=== PATIENT | male | born 1930 | race Caucasian/White ===

== ENCOUNTER 2016-12-09 02:17 | Emergency (ER) | payer OTHER, MEDICARE ==
[2016-12-09] MEDS ORDERED: OXYCODONE/APAP 5/325MG PREPACK#4 BTL TAKEHOME ONE (02:19)
[2016-12-09] MEDS ORDERED: OXYCODONE/APAP 5/325 TAB PO ONE (02:19)
--- NOTE | 2016-12-09 02:23 | EDPHY ---
H & P HPI/ROS: HPI CHIEF COMPLAINT: Chronic left leg pain. HISTORY OF PRESENT ILLNESS: Patient very pleasant 86-year-old male who presents emergency room by ambulance for chronic leg pain. Patient was recently moved [facility] today however they did not have a all his medications ready for him. His last dose of Percocet was 12 hours ago. He states he takes Percocet every 4 hours for chronic left leg pain. States he has chronic left leg pain this chronically achy for him ever since he has had brain surgery. States he is dependent on Percocet and has not had a for 12 hours he came to the emergency room as he was unable to tolerate the left leg pain he tells me the pain is not new. It is chronic. Always present. But controlled with Percocet he has not had any today. EMS in route brought him 5 mg IM morphine which improved his pain 10/10 to 5/10. He is requesting p.o. Percocet here. Denies any trauma. Past Medical History: CVA, chronic kidney disease, gait instability, fall risk , depression, dementia, squamous cell carcinoma of the skull Past Surgical History: Brain surgery Social History: Lives at [facility] denies daily use of drugs alcohol tobacco products Family History: Noncontributory ROS REVIEW OF SYSTEMS: A comprehensive 10 point review of systems is otherwise negative aside from elements mentioned in the history of present illness. Exam Constitutional triage nursing summary reviewed, vital signs reviewed, awake/ alert. Eyes normal conjunctivae and sclera, EOMI, PERRLA. HENT head exam left side, no skull present, soft tissue flap, normal inspection , atraumatic, moist mucus membranes, no epistaxis, neck supple/ no meningismus, no raccoon eyes. Respiratory clear to auscultation bilaterally, normal breath sounds, no respiratory distress, no wheezing. Cardiovascular rate normal, regular rhythm, no murmur, no edema, distal pulses normal. Gastrointestinal soft, non-tender, no rebound, no guarding, normal bowel sounds, no distension, no pulsatile mass. Genitourinary no CVA tenderness. Musculoskeletal left lower extremity neurovascular intact good cap refill, warm extremity good pulse. Nontender palpation. no midline vertebral tenderness, full range of motion, no calf swelling, no tenderness of extremities, no meningismus, good pulses, neurovascularly intact. Skin pink, warm, & dry, no rash, skin atraumatic. Neurologic awake, alert and oriented x 3, AAOx3, moves all 4 extremities equally, motor intact, sensory intact, CN II-XII intact, normal cerebellar, normal vision, normal speech. Psychiatric normal mood/affect. Heme/Lymph/Immune no lymphadenopathy. Differential Diagnosis: Includes but is not limited to in a particular order, neuropathy, chronic leg pain, need for Percocet, opiate dependency Medical Decision Making: Plan for this patient as he has no focal medical condition or issue that needs to be acutely dressed here in emergency room except for pain control that he has chronic left leg pain. Has been out of his pain medicine today unable to get it. He did receive 5 mg IM morphine by EMS. I have ordered him 5 mg Percocet here. Hopefully this will improve his pain we can discharge him back to [facility]. Re-evaluation: Source: Patient, EMS Departure - Departure Disposition: Home, Routine, Self-Care Clinical Impression: Chronic leg pain Qualifiers: Laterality: left Qualified Code(s): M79.605 - Pain in left leg; G89.29 - Other chronic pain Condition: Good Instructions: Leg Pain (ED) Additional Instructions: 1. Return emergency room if you have any worsening symptoms questions or concerns. Referrals: Patient,NotPresent [Primary Care Provider] - As per Instructions
[2016-12-09 02:37] VITALS: RESP 16
[2016-12-09 03:40] VITALS: BP 133/70; PULSE 70; TEMP 98.6; O2SAT 92
== END 2016-12-09 04:18 | disposition home or self-care (01) ==
LOC: EDUNIT#
DX: M79.605 Pain in left leg (principal); G89.29 Other chronic pain; Z86.73 Personal history of transient ischemic attack (TIA), and cerebral infarction without residual deficits

== ENCOUNTER 2016-12-18 18:53 | Emergency (ER) | payer OTHER, MEDICARE ==
[2016-12-18 19:05] VITALS: RESP 18; TEMP 98.6; O2SAT 98
--- NOTE | 2016-12-18 19:13 | EDPHY ---
H & P Stated Complaint: ATRAUMATIC LEFT LEG PAIN, NOW GONE - Personal History Current Tetanus Diphtheria and Acellular Pertussis (TDAP): Yes - Medical/Surgical History Hx Asthma: No Hx Chronic Respiratory Disease: No Hx Diabetes: No Hx Cardiac Disease: No Hx Renal Disease: No Hx Cirrhosis: No Hx Alcoholism: No Hx HIV/AIDS: No Hx Splenectomy or Spleen Trauma: No Other PMH: brain CA, CKD, CVA - Social History Smoking Status: Never smoked Constitutional: Initial Vital Signs Temperature (C) 37.0 C 12/18/16 19:01 Heart Rate 66 12/18/16 19:01 Respiratory Rate 18 12/18/16 19:01 Blood Pressure 161/82 H 12/18/16 19:01 O2 Sat (%) 98 12/18/16 19:01 O2 Delivery Mode Room Air Allergies/Adverse Reactions: Sulfa (Sulfonamide Antibiotics) Allergy (Verified 12/09/16 02:29) Home Medications: Medication Instructions Recorded Atorvastatin Calcium 12/09/16 Calcitriol 12/09/16 Gabapentin 12/09/16 Iron 12/09/16 Lexapro 12/09/16 Percocet 7.5-325 mg Tablet 12/09/16 Trazodone HCl 12/09/16 oxyCODONE HCL/ACETAMINOPHEN 1 each PO Q4H #20 tablet 12/18/16 [Percocet 10-325 mg Tablet] Medical Decision Making ED Course/Re-evaluation: CHIEF COMPLAINT: chronic left leg pain HISTORY OF PRESENT ILLNESS: The patient is an 86 y/o male with history of brain surgery and subsequent chronic left leg pain presenting in the emergency department with sedentary chronic leg pain that has become uncontrollable with Percocet 7.5-325. He was seen 9 days ago for the same complaint and was given additional pain medication that effectively controlled his pain at that time. Currently, his left leg pain has become too painful, and uncontrolled using Percocet 7.5-325. He has no additional complaints and has trouble remembering why he is here. The patient is a poor historian secondary to prior brain surgery. He reports no traumatic falls. REVIEW OF SYSTEMS: A 10 point review of systems was performed and is negative with the exception of the elements mentioned in the history of present illness. PHYSICAL EXAM: General Appearance: Well hydrated, appropriate, and non-toxic appearing. Head: Atraumatic without scalp tenderness or obvious injury Eyes: Pupils equal, round, reactive to light and accommodation, EOMI, no trauma , no injection. Ears: Clear bilaterally, no perforation, normal landmarks Nose: Atraumatic, no rhinorrhea, clear. Throat: There is no erythema or exudates, no lesions, normal tonsils, mucus membranes moist. Neck: Supple, 2+ carotid upstroke, non-tender, no lymphadenopathy. Respiratory: No retractions, no distress, no wheezes, and no accessory muscle use. Lungs are clear to auscultation bilaterally. Cardiovascular: Regular rate and rhythm, no murmurs, rubs, or gallops. Bilateral carotid, radial, dorsalis pedis, and posterior tibial pulses intact. Good capillary refill all extremities. Gastrointestinal: Abdomen is soft, non-tender, non-distended, no masses, no rebound, no guarding, no peritoneal signs. Musculoskeletal: Unable to lift left leg. No pain from movement of leg. Normal active ROM of all other extremities, atraumatic. Neurological: Alert and oriented at baseline, appropriate, and interactive. Limited motor strength to left lower extremity, secondary to neurosurgical procedure and appears at baseline. Other than this, he has normal DTRs and non- focal cranial nerves, motor, sensory, and cerebellar exam. Skin: No rashes, good turgor, no nodules on palpation. PAST MEDICAL HISTORY: CVA, chronic kidney disease, gait instability, fall risk, depression, dementia, squamous cell carcinoma of skull. PAST SURGICAL HISTORY: Brain surgery FAMILY HISTORY: Non-contributory SOCIAL HISTORY: Lives at [facility] DIFFERENTIAL DIAGNOSIS: The differential diagnosis for the patient's leg pain includes but is not limited to chronic left leg pain, trauma, contusion. MEDICAL DECISION MAKING: This is an 86 y/o male living at [facility] whose chronic leg pain is no longer controlled by his Percocet 7.5-325. He is a poor historian and has dementia. Leg pain is chronic, sedentary, and atraumatic. Movement of his leg does not cause pain. He has limited motor strength to his left leg secondary to his prior neurosurgical procedure; this appears to be at baseline. There is no evidence of trauma or acute condition. I wrote him a script for Percocet 10-325 and explained return precautions with him as well as follow-up with his doctor. Departure - Departure Disposition: Home, Routine, Self-Care Clinical Impression: Chronic pain of left lower extremity Condition: Good Instructions: Leg Pain (ED) Additional Instructions: 1. Take Percocet as prescribed for pain management as needed. 2. See your doctor if you continue to have pain that is uncontrolled with Percocet. 3. Return to emergency room for weakness, uncontrollable pain, worsening of symptoms. Referrals: Patient,NotPresent [Primary Care Provider] - As per Instructions Prescriptions: oxyCODONE HCL/ACETAMINOPHEN [Percocet 10-325 mg Tablet] 1 each PO Q4H #20 tablet Report Scribed for: Eulalio Cohen Report Scribed by: Benjamin Jang Date of Report: 12/18/16 Time of Report: 19:18
[2016-12-18 19:32] VITALS: BP 160/81; PULSE 68
== END 2016-12-18 19:49 | disposition home or self-care (01) ==
LOC: EDUNIT#
DX: M79.662 Pain in left lower leg (principal); G89.29 Other chronic pain; Z85.841 Personal history of malignant neoplasm of brain; Z86.73 Personal history of transient ischemic attack (TIA), and cerebral infarction without residual deficits

== ENCOUNTER 2016-12-26 18:33 | Emergency (ER) | payer OTHER, MEDICARE ==
[2016-12-26 18:47] VITALS: TEMP 97.7; O2SAT 97
--- NOTE | 2016-12-26 18:58 | EDPHY ---
H & P Stated Complaint: lost balance fell hit R side of head on toilet paper roll no loc Time Seen by Provider: 12/26/16 18:51 HPI/ROS: Chief Complaint: Head injury, fall HPI: 86-year-old male had a mechanical fall after he lost his balance and struck the right side of his head on a toilet paper cisneros in the bathroom. He reports no loss of consciousness but he is some poor recollection of events. Complaining of pain in the right side of his head. He has a history of a prior left craniotomy secondary to a bony mass. Has a mild headache right now. No nausea or vomiting. No vision or hearing changes. ROS: 10 point Review of Systems is negative except as noted in the HPI. PMH: Left craniotomy Social History: No smoking, no alcohol, no recreational drug use, lives in a residential facility Family History: non-contributory Physical Exam: Gen: Awake, Alert, No Distress HEENT: Old left bony template missing secondary to craniotomy, right parietal tender with numbness with small hematoma Nose: no rhinorrhea Eyes: PERRLA, EOMI Mouth: Moist mucosa Neck: Supple, no JVD, full range of motion without pain Chest: nontender, lungs clear to auscultation Heart: S1, S2 normal, no murmur Abd: Soft, non-tender, no guarding Back: no CVA tenderness, no midline tenderness Ext: no edema, non-tender Skin: no rash Neuro: CN II-XII intact, Sensation grossly intact, Strength 5/5 in bilateral upper and lower extremities - Personal History Current Tetanus/Diphtheria Vaccine: Unsure Current Tetanus Diphtheria and Acellular Pertussis (TDAP): Unsure - Medical/Surgical History Hx Asthma: No Hx Chronic Respiratory Disease: No Hx Diabetes: No Hx Cardiac Disease: No Hx Renal Disease: No Hx Cirrhosis: No Hx Alcoholism: No Hx HIV/AIDS: No Hx Splenectomy or Spleen Trauma: No Other PMH: brain CA, CKD, CVA - Social History Smoking Status: Never smoked Constitutional: Initial Vital Signs Temperature (C) 36.5 C 12/26/16 18:45 Heart Rate 68 12/26/16 18:45 Respiratory Rate 16 12/26/16 18:45 Blood Pressure 163/77 H 12/26/16 18:45 O2 Sat (%) 97 12/26/16 18:45 O2 Delivery Mode Room Air Allergies/Adverse Reactions: Sulfa (Sulfonamide Antibiotics) Allergy (Verified 12/09/16 02:29) Home Medications: Medication Instructions Recorded Atorvastatin Calcium 12/09/16 Calcitriol 12/09/16 Gabapentin 12/09/16 Iron 12/09/16 Lexapro 12/09/16 Percocet 7.5-325 mg Tablet 12/09/16 Trazodone HCl 12/09/16 oxyCODONE HCL/ACETAMINOPHEN 1 each PO Q4H #20 tablet 12/18/16 [Percocet 10-325 mg Tablet] Medical Decision Making - Diagnostics Imaging Results: CT scan of the brain is negative for acute fracture or bleed per Dr. Carl. Imaging: Discussed imaging studies w/ inbound call center representative Radiologist ED Course/Re-evaluation: 86-year-old male status post fall with head injury. There is no evidence of acute intracranial bleed or fracture at this time. Patient is awake alert and appropriate. Will discharge back to his residence. Departure - Departure Disposition: Home, Routine, Self-Care Clinical Impression: Head injury, Fall Condition: Good Instructions: Head Injury (ED) Additional Instructions: Follow up with primary care physician in 3-4 days for any concerns. Return emergency depart for increasing headache, nausea, vomiting, vision changes hearing changes, or any other concerns. Referrals: Patient,NotPresent [Unknown] - As per Instructions
[2016-12-26 20:58] VITALS: BP 144/76; PULSE 81; RESP 18
== END 2016-12-26 20:58 | disposition home or self-care (01) ==
LOC: EDUNIT#
DX: S09.90XA Unspecified injury of head, initial encounter (principal); Z85.841 Personal history of malignant neoplasm of brain; Z86.73 Personal history of transient ischemic attack (TIA), and cerebral infarction without residual deficits; W01.10XA Fall on same level from slipping, tripping and stumbling with subsequent striking against unspecified object, initial encounter; Y92.091 Bathroom in other non-institutional residence as the place of occurrence of the external cause; Y99.8 Other external cause status

== ENCOUNTER 2017-01-11 09:27 | Emergency (ER) | payer OTHER, MEDICARE ==
--- NOTE | 2017-01-11 09:36 | EDPHY ---
H & P Time Seen by Provider: 01/11/17 09:36 - Medical/Surgical History Hx Asthma: No Hx Chronic Respiratory Disease: No Hx Diabetes: No Hx Cardiac Disease: No Hx Renal Disease: No Hx Cirrhosis: No Hx Alcoholism: No Hx HIV/AIDS: No Hx Splenectomy or Spleen Trauma: No Other PMH: brain CA, CKD, CVA - Social History Smoking Status: Never smoked Constitutional: Initial Vital Signs Temperature (C) 36.7 C 01/11/17 09:32 Heart Rate 66 01/11/17 09:32 Respiratory Rate 16 01/11/17 09:32 Blood Pressure 159/77 H 01/11/17 09:32 O2 Sat (%) 94 01/11/17 09:32 O2 Delivery Mode Room Air Allergies/Adverse Reactions: Sulfa (Sulfonamide Antibiotics) Allergy (Verified 12/09/16 02:29) Home Medications: Medication Instructions Recorded Atorvastatin Calcium 12/09/16 Calcitriol 12/09/16 Gabapentin 12/09/16 Iron 12/09/16 Lexapro 12/09/16 Percocet 7.5-325 mg Tablet 12/09/16 Trazodone HCl 12/09/16 oxyCODONE HCL/ACETAMINOPHEN 1 each PO Q4H #20 tablet 12/18/16 [Percocet 10-325 mg Tablet] Medical Decision Making - Diagnostics Imaging Results: Imaging Impressions Cervical Spine CT 01/11/17 09:36 Impression: Nothing acute identified. 2. CT Cervical Spine Without Contrast History: Trauma. Fall out of bed. Technique: Multislice helical CT through the cervical spine without contrast from the skull base to T1. Soft tissue and bone evaluation is performed. Sagittal and coronal reconstructions are obtained and reviewed. Dose reduction techniques were utilized. Findings: Cervical alignment is anatomic. No fracture or dislocation is identified. The relationship between skull base and C1 is normal. The C1-C2 articulation is normally aligned, but severely arthritic. There is a degenerative ossicle caudal to the anterior sclerotic ring of C1. The odontoid process is intact. There is degenerative disk disease between C3 and C7. Facet joints are normally aligned. There is degenerative facet disease on the left between C3 and C6. There are nuchal ligament ossifications posteriorly between C3 and C7. The cervical thoracic junction is normally aligned. Soft tissue window evaluation does not show evidence of epidural or prevertebral hematoma. Incidentally noted is bilateral carotid bifurcation vascular calcification. Impression: No acute posttraumatic abnormality identified. Results called and discussed with Eulalio Cohen MD, at 01/11/2017 10:23 Final results are concordant with the initial interpretation. General information for patients regarding this examination can be found at [email or web address]. If you have questions or comments about this report, please contact me at (hospital) or [phone] (cell). Head CT 01/11/17 09:36 Impression: Nothing acute identified. 2. CT Cervical Spine Without Contrast History: Trauma. Fall out of bed. Technique: Multislice helical CT through the cervical spine without contrast from the skull base to T1. Soft tissue and bone evaluation is performed. Sagittal and coronal reconstructions are obtained and reviewed. Dose reduction techniques were utilized. Findings: Cervical alignment is anatomic. No fracture or dislocation is identified. The relationship between skull base and C1 is normal. The C1-C2 articulation is normally aligned, but severely arthritic. There is a degenerative ossicle caudal to the anterior sclerotic ring of C1. The odontoid process is intact. There is degenerative disk disease between C3 and C7. Facet joints are normally aligned. There is degenerative facet disease on the left between C3 and C6. There are nuchal ligament ossifications posteriorly between C3 and C7. The cervical thoracic junction is normally aligned. Soft tissue window evaluation does not show evidence of epidural or prevertebral hematoma. Incidentally noted is bilateral carotid bifurcation vascular calcification. Impression: No acute posttraumatic abnormality identified. Results called and discussed with Eulalio Cohen MD, at 01/11/2017 10:23 Final results are concordant with the initial interpretation. General information for patients regarding this examination can be found at [email or web address]. If you have questions or comments about this report, please contact me at [phone] (hospital) or [phone] (cell). ED Course/Re-evaluation: CHIEF COMPLAINT: Fall hit head HISTORY OF PRESENT ILLNESS: 87-year-old gentleman who was reaching out of bed to his nightstand when he reached too far and rolled. He hit his right forehead on the ground. He was fine ambulating fine but then became dizzy so the staff at the nursing facility called for ambulance transport. Patient has slight neck pain on the right he states and slight pain on the forehead. Most importantly this patient has had brain surgery and had a metal plate put in but unfortunately that got infected metal plate was taken out so he does not have skull covering part of his right head. He denies neurologic problems REVIEW OF SYSTEMS: A 10 point review of systems was performed and is negative with the exception of the elements mentioned in the history of present illness. PHYSICAL EXAM: HR, BP, O2 Sat, RR. Temp noted General Appearance: Alert, well hydrated, appropriate, and non-toxic appearing. Head: Atraumatic without scalp tenderness or obvious injury Eyes: Pupils equal, round, reactive to light and accommodation, EOMI, no trauma , no injection. Ears: Clear bilaterally, no perforation, normal landmarks Nose: Atraumatic, no rhinorrhea, clear. Throat: There is no erythema or exudates, no lesions, normal tonsils, mucus membranes moist. Neck: Supple, 2+ carotid upstroke, nontender, no lymphadenopathy. Respiratory: No retractions, no distress, no wheezes, and no accessory muscle use. Lungs are clear to auscultation bilaterally. Cardiovascular: Regular rate and rhythm, no murmurs, rubs, or gallops. Bilateral carotid, radial, dorsalis pedis, and posterior tibial pulses intact. Good capillary refill all extremities. Gastrointestinal: Abdomen is soft, nontender, non-distended, no masses, no rebound, no guarding, no peritoneal signs. Musculoskeletal: Normal active ROM of all extremities, atraumatic. Neurological: Alert, appropriate, and interactive. The patient has normal DTRs and non-focal cranial nerves, motor, sensory, and cerebellar exam. Skin: Small hematoma right forehead, No rashes, good turgor, no nodules on palpation. Past medical history: Brain tumors with surgery Past surgical history: Brain surgery Family history: Noncontributory Social history: Lives at a nursing facility does not abuse tobacco drugs or alcohol retired DIAGNOSTICS/PROCEDURES/CRITICAL CARE TIME: Study: CT of the head and cervical spine without contrast Indication: trauma Results: CT scan of the head and cervical spine was obtained. The results of the study are normal. The study was read by the radiologist, Dr. Elizabeth . I viewed the images myself on the PACS system. DIFFERENTIAL DIAGNOSIS: The differential diagnosis for the patient's trauma included but was not limited to intracranial injury, long bone and pelvic bone fractures, spinal injury, intra-abdominal injury, and intra-thoracic injury. MEDICAL DECISION MAKING: This patient has no current neurologic problems. He did have some dizziness after the fall but he denies loss of consciousness. Due to his age group and the fact that he does not have skull covering a large portion of his head I have opted to CT him. He also has some right-sided neck pain. CTs are pending. Patient is comfortable. Patient has no acute findings. We will discharge him back to the nursing facility. Departure - Departure Disposition: Home, Routine, Self-Care Clinical Impression: Fall Qualifiers: Encounter type: initial encounter Qualified Code(s): W19.XXXA - Unspecified fall, initial encounter Contusion Qualifiers: Encounter type: initial encounter Contusion area: head Contusion of head detail : scalp Qualified Code(s): S00.03XA - Contusion of scalp, initial encounter Condition: Good Instructions: Fall Prevention for Older Adults (ED), Contusion in Adults (ED) Referrals: Patient,NotPresent [Primary Care Provider] - As per Instructions
[2017-01-11 10:56] VITALS: BP 152/80; RESP 14; O2SAT 97
[2017-01-11 10:57] VITALS: PULSE 63; TEMP 98.2
== END 2017-01-11 11:40 | disposition home or self-care (01) ==
LOC: EDUNIT#
DX: S00.03XA Contusion of scalp, initial encounter (principal); N18.9 Chronic kidney disease, unspecified; Z85.841 Personal history of malignant neoplasm of brain; Z86.73 Personal history of transient ischemic attack (TIA), and cerebral infarction without residual deficits; W06.XXXA Fall from bed, initial encounter

== ENCOUNTER → 2017-09-19 | Outpatient (CLI) | payer OTHER, MEDICARE | LOC: FIMAGING 16:02 | PROVIDERS: ATTEND Internal Medicine | DX: N50.819 Testicular pain, unspecified (principal); N18.4 Chronic kidney disease, stage 4 (severe) ==

== ENCOUNTER 2017-12-20 14:26 | Emergency (ER) | payer OTHER, MEDICARE ==
--- NOTE | 2017-12-20 14:29 | EDPHY ---
H & P Time Seen by Provider: 12/20/17 14:28 HPI/ROS: HPI: This is an 87-year-old male who presents with Chief Complaint: Blood in his urine Location: Quality: Blood Duration: 3 hours Signs and Symptoms: no fever, no nausea, no vomiting, no hematemesis, no blood in stool, no abdominal bloating, no diarrhea, no back pain, + urinary hesitancy , + urinary frequency, no testicular/groin pain, no indigestion, no chest pain, no shortness of breath Timing:acute Severity: Moderate to severe Context: Patient presents via EMS from [facility] with complaints of blood in his urine and bladder spasms. Patient is status post Uro lift transprosthetic implant procedure yesterday by Maikel Mcnamara of the [facility]. Patient reports that he was peeing okay until this morning. He reports that he is only able to urinate a small amount at a time and has noted blood in his urine. He mostly complains of spasms in his rectal and bladder area since this afternoon. He does not take any blood thinners. Denies any fever, nausea, vomiting, testicular/groin pain. Modifying Factors: None Comment: ROS: see HPI Constitutional: No fever, no chills, no weight loss Eyes: No blurred vision Respiratory: No shortness of breath, no cough Cardiovascular: No chest pain, no palpitations Gastrointestinal: No nausea, no vomiting, no diarrhea, no hematemesis, no blood in stool Genitourinary: No dysuria, + blood in urine Extremities: No myalgias, no edema Neurologic: No weakness, no numbness Skin: No rashes, no petechiae Hematologic: No bruising, no bleeding MEDICAL/SURGICAL/SOCIAL HISTORY: Medical history: brain CA, CKD, CVA Surgical history: Denies Social history: Family history noncontributory. CONSTITUTIONAL: Pleasant with mild distress elderly white male, awake and alert HEENT: Atraumatic and normocephalic, PERRL, EOMI. Nares patent; no rhinorrhea; no nasal mucosal edema. Tympanic membranes clear. Oropharynx clear, no exudate and moist pink mucosa. Airway patent. No lymphadenopathy. No meningismus. Cardiovascular: Normal S1/S2, regular rate, regular rhythm, without murmur rub or gallop. PULMONARY/CHEST: Symmetrical and nontender. Clear to auscultation bilaterally. Good air movement. No accessory muscle usage. ABDOMEN: Soft, nondistended, moderate suprapubic tenderness, no rebound, no guarding, no peritoneal signs, no masses or organomegaly. No CVAT. Male : circumcised penis, bilateral descended testes, no testicular swelling, no testicular masses, no penile discharge, no lesions, negative Prehn's sign. EXTREMITIES: 2/2 pulses, strength 5/5, no deformities, no clubbing, no cyanosis or edema. NEUROLOGICAL: no focal neuro deficits. GCS 15. SKIN: Warm and dry, no erythema. no rash. Good capillary refill. Source: Patient, EMS, Old records Exam Limitations: No limitations - Medical/Surgical History Hx Asthma: No Hx Chronic Respiratory Disease: No Hx Diabetes: No Hx Cardiac Disease: No Hx Renal Disease: No Hx Cirrhosis: No Hx Alcoholism: No Hx HIV/AIDS: No Hx Splenectomy or Spleen Trauma: No Other PMH: brain CA, CKD, CVA - Social History Smoking Status: Never smoked Constitutional: Initial Vital Signs Temperature (C) 36.8 C 12/20/17 14:35 Heart Rate 75 12/20/17 14:35 Respiratory Rate 18 12/20/17 14:35 Blood Pressure 165/125 H 12/20/17 14:35 O2 Sat (%) 95 12/20/17 14:35 O2 Delivery Mode Room Air Allergies/Adverse Reactions: Sulfa (Sulfonamide Antibiotics) Allergy (Verified 12/20/17 14:35) Home Medications: Medication Instructions Recorded Atorvastatin Calcium 12/09/16 Calcitriol 12/09/16 Gabapentin 12/09/16 Iron 12/09/16 Lexapro 12/09/16 Percocet 7.5-325 mg Tablet 12/09/16 Trazodone HCl 12/09/16 oxyCODONE HCL/ACETAMINOPHEN 1 each PO Q4H #20 tablet 12/18/16 [Percocet 10-325 mg Tablet] Cephalexin [Keflex (*)] 500 mg PO TID #21 cap 12/20/17 Opium/Belladonna Alkaloids 1 each RC Q4 PRN #12 supp.rect 12/20/17 [Belladonna-Opium 16.2-30 Supp] Medical Decision Making ED Course/Re-evaluation: Bladder scan at bedside shows greater than 350 mL 1430: ED decision to consult [facility]. B and O suppository ordered 1440: Spoke with Dr. Vega, who is deep well contractor for Dr. Mcnamara. She reports to place an 18 Russian coude and leave in place until follow-up appointment early next week. She agrees with discharging him on B and O suppository and recommends Keflex 3 times a day x 7 days. 18 Russian coude catheter inserted by nurse on 1st attempt with 400 mL of bluish colored urine. Leg bag provided. Patient will be started on antibiotics per Dr. Michel's recommendation Patient will be discharged back to the [facility] with appointment with Urology Friday or Friday. This patient was seen under the supervision of my secondary supervising physician. I evaluated care for this patient independently. Discussed this patient with Dr. Leong who did not see the patient. Differential Diagnosis: Differential diagnosis includes but is not limited to BPH, urinary tract infection, urinary retention, bladder spasms. - Data Points Medications Given: Discontinued Medications Belladonna Alkaloids/Opium (B & O) 1 each MO EDNOW ONE Stop: 12/20/17 14:40 Last Admin: 12/20/17 14:57 Dose: 1 each Departure - Departure Disposition: Home, Routine, Self-Care Clinical Impression: Urinary retention with incomplete bladder emptying, History of prostate surgery Condition: Good Instructions: Urinary Retention in Men (ED), Whitehead Catheter Placement and Care (ED) Additional Instructions: Please call Dr. Mcnamara's office on Friday for follow up appointment early next week. You will be started on Keflex 3 times a day for the next 7 days for antibiotic prophylaxis. Take B and O suppositories every 4 hr as needed for bladder spasms. Follow-Up: Please follow-up as noted above. Follow-up sooner if your condition worsens or if you develop any new problems. Call as soon as possible for an appointment. Be clear when you call for an appointment that this is an Emergency Department follow-up. Contact the Emergency Department if you have trouble arranging follow-up care. Our referrals are not based on your insurance network. When time allows, contact your insurance carrier to verify the referral physician is in your plan. If not, get a referral for an in-network liaison. Referrals: Maikel Mcnamara MD [Medical Doctor] - As per Instructions Prescriptions: Cephalexin [Keflex (*)] 500 mg PO TID #21 cap Opium/Belladonna Alkaloids [Belladonna-Opium 16.2-30 Supp] 1 each RC Q4 PRN #12 supp.rect PRN Reason: Spasms
[2017-12-20] MEDS ORDERED: OPIUM/BELLADONNA ALKALO SUPP PR ONE (14:39)
[2017-12-20] MEDS ORDERED: CEPHALEXIN 500 MG CAP PO ONE (15:27)
[2017-12-20 15:58] VITALS: BP 131/77
--- NOTE | 2017-12-20 18:39 | ASDISCHSUM ---
Discharge Information Plan Status:Assisted Living Medically Cleared to Leave: Discharge Date:12/20/2017 04:38 PM CM D/C Disposition:Assisted Living ADT D/C Disposition:Home, Routine, Self-Care Projected Discharge Date:12/20/2017 04:38 PM Transportation at D/C:Taxicab Discharge Delay Reason: Follow-Up Date:12/20/2017 04:38 PM Discharge Slot: Final Diagnosis: Placement Information Patient Contact Information Contact Name:CHIOMA Relationship:Daughter [address] Work Phone: City:[place] Alternate Phone: [facility]/Zip Code:[place] [address] Email: Financial Information Financial Class:Medicare Primary Plan Desc:MEDICARE OUTPATIENT Primary Plan Number:[id number] Secondary Plan Desc:AARP/MDR SUPPLEMENT Secondary Plan Number:[id number] Assessment Information [facility] CM Progress Note CM Note CM Note Notes: Pt presented to the ED from his Assisted Living apartment at [facility] ([phone]) for blood in his urine and bladder spasms. Requested to assist with getting patient back home. This CM spoke with DHIRAJ Rojo at [facility], and relayed information re:pt's ED visit and discharge instructions. [facility] does not have transportation available on the weekend. Pt states he will just take a cab home; this CM offered to call pt's daughter who appears to live in [place], but pt stated he didn't want to call her at this time and he wanted to just take a cab. Alia states she feels comfortable with this plan. Pt provided prescriptions and discharge instructions to follow up with his urologist, smith Morillo/[facility]. CM available for further assistance if needed. Date Signed: 12/20/2017 06:37 PM Electronically Signed By:Jessie Ruff RN Intervention Information Intervention Type:Post Acute Communication Date of Service:12/20/2017 06:37 PM Patient Type:Emergency Room Staff Member:DHIRAJ Ruff [place] Hours:0.25 Discipline:Cad Application Support Specialist Severity: Comment: Intervention Type:Transportation Date of Service:12/20/2017 06:37 PM Patient Type:Emergency Room Staff Member:DHIRAJ Ruff [place] Hours:0.25 Discipline:Cad Application Support Specialist Severity: Comment: Intervention Type:Medication Date of Service:12/20/2017 06:37 PM Patient Type:Emergency Room Staff Member:DHIRAJ Ruff [place] Hours:0.25 Discipline:Cad Application Support Specialist Severity: Comment:
== END 2017-12-20 16:38 | disposition home or self-care (01) ==
LOC: EDUNIT#
PROC: 0T9B70Z Drainage of Bladder with Drainage Device, Via Natural or Artificial Opening (ICD-10-PCS; principal; 2017-12-20)
DX: R33.9 Retention of urine, unspecified (principal); Z85.841 Personal history of malignant neoplasm of brain; Z86.73 Personal history of transient ischemic attack (TIA), and cerebral infarction without residual deficits; Z90.79 Acquired absence of other genital organ(s)

== ENCOUNTER 2017-12-27 21:39 | Emergency (ER) | payer OTHER, MEDICARE ==
--- NOTE | 2017-12-27 21:49 | EDPHY ---
H & P Time Seen by Provider: 12/27/17 21:49 HPI/ROS: HPI CHIEF COMPLAINT: Bladder spasms HISTORY OF PRESENT ILLNESS: Very pleasant 87-year-old male presents emergency room by EMS for bladder spasms. Patient has a history of dementia he currently has indwelling Whitehead catheter in place that we believe is been in place for week. He is currently on Keflex. He presents emergency room stating that he has the urge to urinate and feels bladder spasm/pain. Denies any back pain fever or vomiting. Decided come the emergency room for evaluation. Past Medical History: History of CVA, chronic kidney disease, squamous cell carcinoma, dementia, depression, indwelling Whitehead catheter Past Surgical History: Brain surgery Social History: Resides at [facility]. Denies drugs alcohol tobacco. Family History: Noncontributory ROS REVIEW OF SYSTEMS: A comprehensive 10 point review of systems is otherwise negative aside from elements mentioned in the history of present illness. Exam Constitutional appears well nontoxic no acute distress, elderly, triage nursing summary reviewed, vital signs reviewed, awake/alert. Eyes normal conjunctivae and sclera, EOMI, PERRLA. HENT normal inspection, atraumatic, moist mucus membranes, no epistaxis, neck supple/ no meningismus, no raccoon eyes. Respiratory clear to auscultation bilaterally, normal breath sounds, no respiratory distress, no wheezing. Cardiovascular rate normal, regular rhythm, no murmur, no edema, distal pulses normal. Gastrointestinal no significant tenderness over the suprapubic region, no rebound, no guarding, normal bowel sounds, no distension, no pulsatile mass. Genitourinary no CVA tenderness. Musculoskeletal no midline vertebral tenderness, full range of motion, no calf swelling, no tenderness of extremities, no meningismus, good pulses, neurovascularly intact. Skin pink, warm, & dry, no rash, skin atraumatic. Neurologic awake, alert and oriented x 3, AAOx3, moves all 4 extremities equally, motor intact, sensory intact, CN II-XII intact, normal cerebellar, normal vision, normal speech. Psychiatric normal mood/affect. Heme/Lymph/Immune no lymphadenopathy. Differential Diagnosis: Includes but is not limited to in a particular order UTI, cystitis, Whitehead catheter problem Medical Decision Making: Plan for this patient check basic blood work, gentle IV hydration, check UA Chely just Whitehead catheter re-evaluate. Peridium for bladder spasms. Re-evaluation: 1200AM: Patient's Whitehead catheter was adjusted and flushed. After flushing debris was removed and it drained appropriately. 400 cc of green color urine was drained. He is feeling much better. On re-examination he has no abdominal pain. His blood work has been reviewed he is dry on exam indeed receive IV fluids here 1 L normal saline. He now appears well. Vital signs are stable. Afebrile. Creatinine and BUN slightly elevated but close to baseline. This should improve after IV fluids. The urinalysis has been reviewed he is already on Keflex I encouraged him to continue this. Whitehead catheter is draining. No abdominal pain. He is not febrile he is not vomiting. He feels well. Plan will be discharging him back to his care facility. Return precautions discussed with him he understands return emergency room if develops worsening abdominal pain fever vomiting. Source: Patient, EMS - Medical/Surgical History Hx Asthma: No Hx Chronic Respiratory Disease: No Hx Diabetes: No Hx Cardiac Disease: No Hx Renal Disease: No Hx Cirrhosis: No Hx Alcoholism: No Hx HIV/AIDS: No Hx Splenectomy or Spleen Trauma: No Other PMH: brain CA, CKD, CVA - Social History Smoking Status: Never smoked Constitutional: Initial Vital Signs Temperature (C) 36.8 C 12/27/17 22:13 Heart Rate 80 12/27/17 22:13 Respiratory Rate 22 H 12/27/17 22:13 Blood Pressure 136/63 H 12/27/17 22:13 O2 Sat (%) 94 12/27/17 22:13 O2 Delivery Mode Room Air Allergies/Adverse Reactions: Sulfa (Sulfonamide Antibiotics) Allergy (Verified 12/20/17 14:35) Home Medications: Medication Instructions Recorded Atorvastatin Calcium 12/09/16 Calcitriol 12/09/16 Gabapentin 12/09/16 Iron 12/09/16 Lexapro 12/09/16 Percocet 7.5-325 mg Tablet 12/09/16 Trazodone HCl 12/09/16 oxyCODONE HCL/ACETAMINOPHEN 1 each PO Q4H #20 tablet 12/18/16 [Percocet 10-325 mg Tablet] Cephalexin [Keflex (*)] 500 mg PO TID #21 cap 12/20/17 Opium/Belladonna Alkaloids 1 each RC Q4 PRN #12 supp.rect 12/20/17 [Belladonna-Opium 16.2-30 Supp] Medical Decision Making - Data Points Laboratory Results: Laboratory Results 12/27/17 22:00 12/27/17 22:00 12/27/17 12/27/17 12/27/17 22:40 22:00 22:00 WBC RBC Hgb Hct MCV MCH MCHC RDW Plt Count MPV Neut % (Auto) Lymph % (Auto) [place] % (Auto) Eos % (Auto) Baso % (Auto) Nucleat RBC Rel Count Absolute Neuts (auto) Absolute Lymphs (auto) Absolute Monos (auto) Absolute Eos (auto) Absolute Basos (auto) Absolute Nucleated RBC Immature Gran % Immature Gran # PT 14.1 SEC SEC (12.0-15.0) INR 1.07 (0.83-1.16) APTT 30.9 SEC SEC (23.0-38.0) Sodium 144 mEq/L mEq/L (135-145) Potassium 4.6 mEq/L mEq/L (3.3-5.0) Chloride 111 mEq/L H mEq/L (97-110) Carbon Dioxide 18 mEq/l L mEq/l (22-31) Anion Gap 15 mEq/L mEq/L (8-16) BUN 39 mg/dL H mg/dL (7-23) Creatinine 2.2 mg/dL H mg/dL (0.7-1.3) Estimated GFR 29 Glucose 123 mg/dL H mg/dL (70-100) Calcium 8.1 mg/dL L mg/dL (8.5-10.4) Total Bilirubin 0.6 mg/dL mg/dL (0.1-1.4) Conjugated Bilirubin 0.5 mg/dL mg/dL (0.0-0.5) Unconjugated Bilirubin 0.1 mg/dL mg/dL (0.0-1.1) AST 22 IU/L IU/L (17-59) ALT 30 IU/L IU/L (21-72) Alkaline Phosphatase 77 IU/L IU/L (38-126) Total Protein 6.0 g/dL L g/dL (6.3-8.2) Albumin 3.5 g/dL g/dL (3.5-5.0) Lipase 192 IU/L IU/L (23-300) Urine Color GREEN Urine Appearance MODERATELY TURBID Urine pH 6.0 (5.0-7.5) Ur Specific [place] 1.019 (1.002-1.030) Urine Protein NEGATIVE (NEGATIVE) Urine Ketones NEGATIVE (NEGATIVE) Urine Blood 2+ H (NEGATIVE) Urine Nitrate NEGATIVE (NEGATIVE) Urine Bilirubin NEGATIVE (NEGATIVE) Urine Urobilinogen NEGATIVE EU EU (0.2-1.0) Ur Leukocyte Esterase NEGATIVE (NEGATIVE) Urine RBC 50-182 /hpf H /hpf (0-3) Urine WBC 5-10 /hpf H /hpf (0-3) Ur Epithelial Cells NONE SEEN /lpf /lpf (NONE-1+) Amorphous Sediment PRESENT /hpf /hpf (NONE-1+) Urine Bacteria 1+ /hpf H /hpf (NONE SEEN) Urine Glucose NEGATIVE (NEGATIVE) 12/27/17 22:00 WBC 6.64 10^3/uL 10^3/uL (3.80-9.50) RBC 3.25 10^6/uL L 10^6/uL (4.40-6.38) Hgb 9.7 g/dL L g/dL (13.7-17.5) Hct 28.7 % L % (40.0-51.0) MCV 88.3 fL fL (81.5-99.8) MCH 29.8 pg pg (27.9-34.1) MCHC 33.8 g/dL g/dL (32.4-36.7) RDW 14.0 % % (11.5-15.2) Plt Count 174 10^3/uL 10^3/uL (150-400) MPV 9.8 fL fL (8.7-11.7) Neut % (Auto) 73.4 % % (39.3-74.2) Lymph % (Auto) 11.9 % L % (15.0-45.0) [place] % (Auto) 9.8 % % (4.5-13.0) Eos % (Auto) 2.0 % % (0.6-7.6) Baso % (Auto) 0.5 % % (0.3-1.7) Nucleat RBC Rel Count 0.0 % % (0.0-0.2) Absolute Neuts (auto) 4.88 10^3/uL 10^3/uL (1.70-6.50) Absolute Lymphs (auto) 0.79 10^3/uL L 10^3/uL (1.00-3.00) Absolute Monos (auto) 0.65 10^3/uL 10^3/uL (0.30-0.80) Absolute Eos (auto) 0.13 10^3/uL 10^3/uL (0.03-0.40) Absolute Basos (auto) 0.03 10^3/uL 10^3/uL (0.02-0.10) Absolute Nucleated RBC 0.00 10^3/uL 10^3/uL (0-0.01) Immature Gran % 2.4 % H % (0.0-1.1) Immature Gran # 0.16 10^3/uL H 10^3/uL (0.00-0.10) PT INR APTT Sodium Potassium Chloride Carbon Dioxide Anion Gap BUN Creatinine Estimated GFR Glucose Calcium Total Bilirubin Conjugated Bilirubin Unconjugated Bilirubin AST ALT Alkaline Phosphatase Total Protein Albumin Lipase Urine Color Urine Appearance Urine pH Ur Specific [place] Urine Protein Urine Ketones Urine Blood Urine Nitrate Urine Bilirubin Urine Urobilinogen Ur Leukocyte Esterase Urine RBC Urine WBC Ur Epithelial Cells Amorphous Sediment Urine Bacteria Urine Glucose Medications Given: Discontinued Medications Sodium Chloride (Ns) 1,000 mls @ 0 mls/hr IV EDNOW ONE; Wide Open PRN Reason: Protocol Stop: 12/27/17 21:53 Last Admin: 12/27/17 22:10 Dose: 1,000 mls Phenazopyridine HCl (Pyridium) 200 mg PO EDNOW ONE Stop: 12/27/17 21:54 Last Admin: 12/27/17 22:05 Dose: 200 mg Departure - Departure Disposition: Home, Routine, Self-Care Clinical Impression: Whitehead catheter problem Qualifiers: Encounter type: initial encounter Qualified Code(s): T83.9XXA - Unspecified complication of genitourinary prosthetic device, implant and graft, initial encounter Condition: Good Instructions: Whitehead Catheter Placement and Care (ED) Additional Instructions: 1. Stay well-hydrated drink lots of fluids. 2. Return emergency room if develops worsening abdominal pain fever vomiting or problems with Whitehead catheter. Referrals: Patient,NotPresent [Unknown] - As per Instructions
[2017-12-27] MEDS ORDERED: NS 1,000 ML IV ONE (21:52)
[2017-12-27] MEDS ORDERED: PHENAZOPYRIDINE HCL 200 MG TAB PO ONE (21:53)
[2017-12-27 22:13] LABS: PLATELET COUNT 174 10^3/uL (150-400)
[2017-12-27 22:21] LABS: INR 1.07 (0.83-1.16); PROTIME(PATIENT) 14.1 SEC (12.0-15.0)
[2017-12-28 00:24] VITALS: BP 132/68
== END 2017-12-28 02:23 | disposition home or self-care (01) ==
LOC: EDUNIT#
PROC: 0T9B70Z Drainage of Bladder with Drainage Device, Via Natural or Artificial Opening (ICD-10-PCS; principal; 2017-12-27)
DX: T83.89XA Other specified complication of genitourinary prosthetic devices, implants and grafts, initial encounter (principal); E86.9 Volume depletion, unspecified; N18.9 Chronic kidney disease, unspecified; Z85.841 Personal history of malignant neoplasm of brain; Z86.73 Personal history of transient ischemic attack (TIA), and cerebral infarction without residual deficits; Y73.2 Prosthetic and other implants, materials and accessory gastroenterology and urology devices associated with adverse incidents

== ENCOUNTER 2017-12-29 02:30 | Emergency (ER) | payer OTHER, MEDICARE ==
--- NOTE | 2017-12-29 02:31 | EDPHY ---
H & P Time Seen by Provider: 12/29/17 02:31 HPI/ROS: HPI CHIEF COMPLAINT: Whitehead catheter not draining. HISTORY OF PRESENT ILLNESS: Patient is a 87-year-old male, I saw yesterday who had an obstructed Whitehead we replaced his Whitehead and it was draining any went home. He presents back to the emergency room at 2:30 a.m. In the morning with problems with his Whitehead catheter. Patient states that it is not draining. She denies any back pain or significant abdominal pain. Past Medical History: CVA, chronic kidney disease, squamous cell carcinoma brain surgery Past Surgical History: Brain surgery Social History: He lives at [facility] Family History: Noncontributory ROS REVIEW OF SYSTEMS: A comprehensive 10 point review of systems is otherwise negative aside from elements mentioned in the history of present illness. Exam Constitutional nontoxic appearing no acute distress triage nursing summary reviewed, vital signs reviewed, awake/alert. Eyes normal conjunctivae and sclera, EOMI, PERRLA. HENT normal inspection, atraumatic, moist mucus membranes, no epistaxis, neck supple/ no meningismus, no raccoon eyes. Respiratory clear to auscultation bilaterally, normal breath sounds, no respiratory distress, no wheezing. Cardiovascular rate normal, regular rhythm, no murmur, no edema, distal pulses normal. Gastrointestinal soft, non-tender, no rebound, no guarding, normal bowel sounds, no distension, no pulsatile mass. Genitourinary no CVA tenderness. Whitehead catheter in place with minimal urine in the bag. Musculoskeletal no midline vertebral tenderness, full range of motion, no calf swelling, no tenderness of extremities, no meningismus, good pulses, neurovascularly intact. Skin pink, warm, & dry, no rash, skin atraumatic. Neurologic awake, alert and oriented x 3, AAOx3, moves all 4 extremities equally, motor intact, sensory intact, CN II-XII intact, normal cerebellar, normal vision, normal speech. Psychiatric normal mood/affect. Heme/Lymph/Immune no lymphadenopathy. Differential Diagnosis: Includes but is not limited to in a particular order obstructed Whitehead catheter, dislodged Whitehead catheter, urinary obstruction, urinary retention Medical Decision Making: Plan for this patient will flush catheter bladder scan re-evaluate. Re-evaluation: 0504: Patient re-evaluated will be to flushes Whitehead catheter and 1200 cc of urine was removed. He is feeling much better. Abdomen is soft. Will be discharge back to his facility.. Return precautions discussed with him Source: Patient, EMS - Medical/Surgical History Hx Asthma: No Hx Chronic Respiratory Disease: No Hx Diabetes: No Hx Cardiac Disease: No Hx Renal Disease: No Hx Cirrhosis: No Hx Alcoholism: No Hx HIV/AIDS: No Hx Splenectomy or Spleen Trauma: No Other PMH: brain CA, CKD, CVA - Social History Smoking Status: Never smoked Constitutional: Initial Vital Signs Temperature (C) 36.8 C 12/29/17 02:37 Heart Rate 69 12/29/17 02:37 Respiratory Rate 16 12/29/17 02:37 Blood Pressure 139/69 H 12/29/17 02:37 O2 Sat (%) 95 12/29/17 02:37 O2 Delivery Mode Room Air Allergies/Adverse Reactions: Sulfa (Sulfonamide Antibiotics) Allergy (Verified 12/20/17 14:35) Home Medications: Medication Instructions Recorded Atorvastatin Calcium 12/09/16 Calcitriol 12/09/16 Gabapentin 12/09/16 Iron 12/09/16 Lexapro 12/09/16 Percocet 7.5-325 mg Tablet 12/09/16 Trazodone HCl 12/09/16 oxyCODONE HCL/ACETAMINOPHEN 1 each PO Q4H #20 tablet 12/18/16 [Percocet 10-325 mg Tablet] Cephalexin [Keflex (*)] 500 mg PO TID #21 cap 12/20/17 Opium/Belladonna Alkaloids 1 each RC Q4 PRN #12 supp.rect 12/20/17 [Belladonna-Opium 16.2-30 Supp] Departure - Departure Disposition: Home, Routine, Self-Care Clinical Impression: Whitehead catheter problem Qualifiers: Encounter type: initial encounter Qualified Code(s): T83.9XXA - Unspecified complication of genitourinary prosthetic device, implant and graft, initial encounter Condition: Good Instructions: Whitehead Catheter Placement and Care (ED) Referrals: Patient,NotPresent [Unknown] - As per Instructions
[2017-12-29 05:26] VITALS: BP 134/67
== END 2017-12-29 05:25 | disposition home or self-care (01) ==
LOC: EDUNIT#
DX: T83.098A Other mechanical complication of other urinary catheter, initial encounter (principal); Z85.841 Personal history of malignant neoplasm of brain; Z86.73 Personal history of transient ischemic attack (TIA), and cerebral infarction without residual deficits; Y82.8 Other medical devices associated with adverse incidents

== ENCOUNTER 2017-12-29 11:28 | Emergency (ER) | payer OTHER, MEDICARE ==
--- NOTE | 2017-12-29 12:24 | EDPHY ---
H & P Stated Complaint: roman issues Time Seen by Provider: 12/29/17 12:23 HPI/ROS: CHIEF COMPLAINT: Problems with Roman catheter HISTORY OF PRESENT ILLNESS: The patient has a history of a neurogenic bladder presents the emergency department with difficulty getting his bladder to fully empty. The patient denies any fever or flank pain. The patient does walk with a walker. He is scheduled to see his urologist in follow-up this week. I did speak with Anders who has requested we place an 18 Marshallese catheter. 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 REVIEW OF SYSTEMS: A comprehensive 10 point review of systems is otherwise negative aside from elements mentioned in the history of present illness. Source: Patient Exam Limitations: No limitations - Personal History Current Tetanus/Diphtheria Vaccine: Yes Current Tetanus Diphtheria and Acellular Pertussis (TDAP): Yes - Medical/Surgical History Hx Asthma: No Hx Chronic Respiratory Disease: No Hx Diabetes: No Hx Cardiac Disease: No Hx Renal Disease: No Hx Cirrhosis: No Hx Alcoholism: No Hx HIV/AIDS: No Hx Splenectomy or Spleen Trauma: No Other PMH: brain CA, CKD, CVA - Social History Smoking Status: Never smoked - Physical Exam Exam: General Appearance: Alert, no distress Head: Prior craniotomy Eyes: Pupils equal and round no pallor or injection ENT, Mouth: Mucous membranes moist Respiratory: There are no retractions, lungs are clear to auscultation Cardiovascular: Regular rate and rhythm Gastrointestinal: Abdomen is soft and nontender, no masses, bowel sounds normal Neurological: 5/5 strength all 4 extremities Skin: Warm and dry, no rashes Musculoskeletal: Neck is supple nontender Extremities: symmetrical, full range of motion Constitutional: Initial Vital Signs Temperature (C) 36.6 C 12/29/17 11:39 Heart Rate 82 12/29/17 11:39 Respiratory Rate 16 12/29/17 11:39 Blood Pressure 118/77 12/29/17 11:39 O2 Sat (%) 97 12/29/17 11:39 O2 Delivery Mode Room Air Allergies/Adverse Reactions: Sulfa (Sulfonamide Antibiotics) Allergy (Verified 12/29/17 11:39) Home Medications: Medication Instructions Recorded Atorvastatin Calcium 12/09/16 Calcitriol 12/09/16 Gabapentin 12/09/16 Iron 12/09/16 Lexapro 12/09/16 Percocet 7.5-325 mg Tablet 12/09/16 Trazodone HCl 12/09/16 oxyCODONE HCL/ACETAMINOPHEN 1 each PO Q4H #20 tablet 12/18/16 [Percocet 10-325 mg Tablet] Cephalexin [Keflex (*)] 500 mg PO TID #21 cap 12/20/17 Opium/Belladonna Alkaloids 1 each RC Q4 PRN #12 supp.rect 12/20/17 [Belladonna-Opium 16.2-30 Supp] Medical Decision Making ED Course/Re-evaluation: The patient's Roman catheter was replaced with an 18 Marshallese Roman at the request of his urologist. He has no significant urinary retention. The patient has no acute complaints and is anxious to be discharged from the emergency department. He will follow up with his urologist as scheduled this week. Differential Diagnosis: Differential diagnosis considered includes urinary retention, renal failure, urinary tract infection Departure - Departure Disposition: Home, Routine, Self-Care Clinical Impression: Roman catheter problem Condition: Good Instructions: Roman Catheter Placement and Care (ED) Additional Instructions: 1. Follow up as scheduled with Dr. Mcnamara. Referrals: Maikel Mcnamara MD [Primary Care Provider] - As per Instructions
[2017-12-29] MEDS ORDERED: LIDOCAINE 2% JELLY 20 ML (UROJECT) ONE (12:50)
[2017-12-29 14:02] VITALS: BP 134/78
== END 2017-12-29 14:03 | disposition home or self-care (01) ==
PROC: 0T9B70Z Drainage of Bladder with Drainage Device, Via Natural or Artificial Opening (ICD-10-PCS; principal; 2017-12-29)
DX: T83.098A Other mechanical complication of other urinary catheter, initial encounter (principal); N18.9 Chronic kidney disease, unspecified; Z85.841 Personal history of malignant neoplasm of brain; Z86.73 Personal history of transient ischemic attack (TIA), and cerebral infarction without residual deficits; Y73.2 Prosthetic and other implants, materials and accessory gastroenterology and urology devices associated with adverse incidents

== ENCOUNTER 2017-12-30 02:24 | Emergency (ER) | payer OTHER, MEDICARE ==
[2017-12-31 04:43] VITALS: BP 119/58
--- NOTE | 2017-12-31 14:56 | EDPHY ---
[facility] Patient Name: CATE DELANEY Rpt#: [id number] Unit Number: [id number] ER Physician: Matt Us MD Patient Type: REG ER Adm Date/Source: 12/30/17 EMR Discharge Date: Primary Carrier: MEDICARE OUTPATIENT EMERGENCY DEPARTMENT PROVIDER REPORT H P Time Seen by Provider: 12/30/17 07:22 HPI/ROS: HPI CHIEF COMPLAINT: Pulled Whitehead out. HISTORY OF PRESENT ILLNESS: This patient is a very pleasant male, however recently multiple times he has a chronic indwelling Whitehead catheter he states that he was getting up out of bed today and accidentally pulled it out. He presents emergency room to have a new Whitehead catheter placed he denies any complaints. Past Medical History: Squamous cell carcinoma, brain surgery, chronic indwelling Whitehead, dementia Past Surgical History: Brain surgery Social History: Denies drugs alcohol tobacco. Resides at [facility]. Family History: Noncontributory ROS REVIEW OF SYSTEMS: A comprehensive 10 point review of systems is otherwise negative aside from elements mentioned in the history of present illness. Exam Constitutional elderly, nontoxic, triage nursing summary reviewed, vital signs reviewed, awake/ alert. Eyes normal conjunctivae and sclera, EOMI, PERRLA. HENT normal inspection, atraumatic, moist mucus membranes, no epistaxis, neck supple/ no meningismus, no raccoon eyes. Respiratory clear to auscultation bilaterally, normal breath sounds, no respiratory distress, no wheezing. Cardiovascular rate normal, regular rhythm, no murmur, no edema, distal pulses normal. Gastrointestinal soft, non-tender, no rebound, no guarding, normal bowel sounds, no distension, no pulsatile mass. Genitourinary no CVA tenderness. Musculoskeletal no midline vertebral tenderness, full range of motion, no calf swelling, no tenderness of extremities, no meningismus, good pulses, neurovascularly intact. Skin pink, warm, dry, no rash, skin atraumatic. Neurologic awake, alert and oriented x 3, AAOx3, moves all 4 extremities equally, motor intact, sensory intact, CN II-XII intact, normal cerebellar, normal vision, normal speech. Psychiatric normal mood/affect. Heme/Lymph/Immune no lymphadenopathy. Differential Diagnosis: Includes but is not limited to in a particular order complication from Whitehead, removed Whitehead Medical Decision Making: Plan for this patient will place new Whitehead catheter. Irrigate. Re-evaluation: 031: Patient's Whitehead catheter was replaced. He had good urine output approximately 400 cc. No complications he is feeling much better. He will be dispositioned back to his living facility. Source: Patient, EMS - Medical/Surgical History Hx Asthma: No Hx Chronic Respiratory Disease: No Hx Diabetes: No Hx Cardiac Disease: No Hx Renal Disease: No Hx Cirrhosis: No Hx Alcoholism: No Hx HIV/AIDS: No Hx Splenectomy or Spleen Trauma: No Other PMH: brain CA, CKD, CVA - Social History Smoking Status: Never smoked Allergies/Adverse Reactions: Sulfa (Sulfonamide Antibiotics) Allergy (Verified 12/29/17 11:39) Home Medications: Medication Instructions Recorded Atorvastatin Calcium 12/09/16 Calcitriol 12/09/16 Gabapentin 12/09/16 Iron 12/09/16 Lexapro 12/09/16 Percocet 7.5-325 mg Tablet 12/09/16 Trazodone HCl 12/09/16 oxyCODONE HCL/ACETAMINOPHEN 1 each PO Q4H #20 tablet 12/18/16 [Percocet 10-325 mg Tablet] Cephalexin [Keflex (*)] 500 mg PO TID #21 cap 12/20/17 Opium/Belladonna Alkaloids 1 each RC Q4 PRN #12 supp.rect 12/20/17 [Belladonna-Opium 16.2-30 Supp] Departure - Departure Disposition: Home, Routine, Self-Care Clinical Impression: Whitehead catheter in place Condition: Good Instructions: Whitehead Catheter Placement and Care (ED) Referrals: NONE *PRIMARY CARE P,. [Primary Care Provider] - As per Instructions *This report may have been compiled using a voice recognition system, and might contain typographical errors and blanks.* Matt Us MD 12/30/17 [id number] <Electronically signed by Mtat Us MD> 4 T: DINORA 12/30/17744 CC: NONE *PRIMARY CARE PHYS ONLY*
== END 2017-12-30 03:24 | disposition home or self-care (01) ==
DX: Z46.6 Encounter for fitting and adjustment of urinary device (principal); Z85.841 Personal history of malignant neoplasm of brain; Z86.73 Personal history of transient ischemic attack (TIA), and cerebral infarction without residual deficits

== ENCOUNTER 2017-12-30 03:56 | Emergency (ER) | payer OTHER, MEDICARE ==
--- NOTE | 2017-12-30 22:32 | EDV ---
[f rep st] EMERGENCY DEPARTMENT REPORT DATE OF SERVICE: 12/30/2017 CHIEF COMPLAINT: Bleeding around the catheter. HISTORY OF PRESENT ILLNESS: The patient is here by EMS and apparently pulled his catheter out accidentally during the night last night. He was apparently seen in our emergency department and the catheter was replaced. The hospital system is currently on down time, and I am unable to pull up any visits of this patient, so I cannot tell whether he was here last night or not, or exactly what transpired, but the patient does tell me he was here last night after the catheter was pulled out, and it was replaced in the emergency department. Today he has some bleeding around the catheter at the meatus. Otherwise, no abdominal pain or fever, chest discomfort or trouble breathing. REVIEW OF SYSTEMS: Complete review of systems otherwise negative. PAST MEDICAL HISTORY: CVA and chronic renal insufficiency. SOCIAL HISTORY: Single, nonsmoker, no alcohol. ADULT PHYSICAL EXAMINATION: GENERAL: Alert, pleasant, well-developed male. VITAL SIGNS: Stable. Mild distress. HEENT: Exam is normal. NECK: Supple. HEART: Regular rate and rhythm without murmur or gallop. LUNGS: Clear. ABDOMEN: Soft and nontender. : Exam shows catheter to be in place and small amount of oozing type bleeding around the catheter. EXTREMITIES: Otherwise normal. NEUROPSYCH: Patient stable. EMERGENCY DEPARTMENT COURSE: Urinalysis is positive only for blood. No evidence for infection. On reevaluation, patient is stable. I consulted and discussed the case with PA for Dr. Reyez for Urology. She recommends leaving the catheter in. She recommends return for worsening bleeding, and they will see the patient in the office in 3-4 days if he is not improving. I have discussed this plan with the patient. We discussed treatment plan including criteria for return and importance of followup and further evaluation. He expresses understanding and agreement. IMPRESSION: Urethral bleeding after catheter trauma. PLAN: Home with criteria for return and followup in 3-[address] Reyez if not improved. /[id number]/MODL MTDD
[2017-12-31 04:53] VITALS: BP 140/70
--- NOTE | 2017-12-31 14:57 | EDPHY ---
[facility] Patient Name: CATE DELANEY Rpt#: [id number] Unit Number: [id number] ER Physician: Matt Us MD Patient Type: REG ER Adm Date/Source: 12/30/17 EMR Discharge Date: Primary Carrier: MEDICARE OUTPATIENT EMERGENCY DEPARTMENT PROVIDER REPORT H P Stated Complaint: PULLED OUT EDWARDS CATHETER Time Seen by Provider: 12/30/17 02:26 HPI/ROS: HPI CHIEF COMPLAINT: Bleeding from Edwards. HISTORY OF PRESENT ILLNESS: Patient was just here in the emergency room where we placed new Edwards catheter as he pulled his Edwards catheter out earlier in the evening. Earlier in the evening we did replace his Edwards he had good urine output after Edwards was placed. Close to 400 cc. He went back to his living facility and then promptly return after EMS dropped him off at his living facility he stood up and had some blood come out or around his Edwards catheter. The staff at this facility became concerned him they brought him back to the emergency room. Past Medical History: Squamous cell carcinoma, brain surgery, chronic indwelling Edwards, dementia Past Surgical History: Brain surgery Social History: Denies drugs alcohol tobacco. Resides at [facility]. Family History: Noncontributory ROS REVIEW OF SYSTEMS: A comprehensive 10 point review of systems is otherwise negative aside from elements mentioned in the history of present illness. Exam Constitutional elderly, nontoxic, triage nursing summary reviewed, vital signs reviewed, awake/ alert. Eyes normal conjunctivae and sclera, EOMI, PERRLA. HENT normal inspection, atraumatic, moist mucus membranes, no epistaxis, neck supple/ no meningismus, no raccoon eyes. Respiratory clear to auscultation bilaterally, normal breath sounds, no respiratory distress, no wheezing. Cardiovascular rate normal, regular rhythm, no murmur, no edema, distal pulses normal. Gastrointestinal soft, non-tender, no rebound, no guarding, normal bowel sounds, no distension, no pulsatile mass. Genitourinary Edwards in place. Bright red blood around the Edwards at the urethral meatus. But no significant bleeding. No significant tenderness on exam. Musculoskeletal no midline vertebral tenderness, full range of motion, no calf swelling, no tenderness of extremities, no meningismus, good pulses, neurovascularly intact. Skin pink, warm, dry, no rash, skin atraumatic. Neurologic awake, alert and oriented x 3, AAOx3, moves all 4 extremities equally, motor intact, sensory intact, CN II-XII intact, normal cerebellar, normal vision, normal speech. Psychiatric normal mood/affect. Heme/Lymph/Immune no lymphadenopathy. Differential Diagnosis: Includes but is not limited to in a particular order complication from Edwards, removed Edwards Medical Decision Making: Plan for this patient will place new Edwards catheter. Irrigate. Re-evaluation: 0545: We have cleaned the patient's blood up, this Edwards is in place and draining. No abdominal pain. No evidence of further bleeding. He most likely had some blood around his Edwards catheter due to the trauma that he encouraged when he removed his own Edwards catheter. 0600: The no evidence of significant bleeding. Most likely blood a little bit around the Edwards catheter that was recently placed. Return precautions discussed with the patient. Understands return emergency room if there is any worsening symptoms including further bleeding, pain, fever, vomiting Source: Patient, EMS - Personal History Current Tetanus/Diphtheria Vaccine: Yes Current Tetanus Diphtheria and Acellular Pertussis (TDAP): Yes - Medical/Surgical History Hx Asthma: No Hx Chronic Respiratory Disease: No Hx Diabetes: No Hx Cardiac Disease: No Hx Renal Disease: No Hx Cirrhosis: No Hx Alcoholism: No Hx HIV/AIDS: No Hx Splenectomy or Spleen Trauma: No Other PMH: brain CA, CKD, CVA - Social History Smoking Status: Never smoked Constitutional: Initial Vital Signs Temperature (C) 36.9 C 12/30/17 02:25 Heart Rate 88 12/30/17 02:25 Respiratory Rate 16 12/30/17 02:25 Blood Pressure 112/77 12/30/17 02:25 O2 Sat (%) 97 12/30/17 02:25 O2 Delivery Mode Room Air Allergies/Adverse Reactions: Sulfa (Sulfonamide Antibiotics) Allergy (Verified 12/29/17 11:39) Home Medications: Medication Instructions Recorded Atorvastatin Calcium 12/09/16 Calcitriol 12/09/16 Gabapentin 12/09/16 Iron 12/09/16 Lexapro 12/09/16 Percocet 7.5-325 mg Tablet 12/09/16 Trazodone HCl 12/09/16 oxyCODONE HCL/ACETAMINOPHEN 1 each PO Q4H #20 tablet 12/18/16 [Percocet 10-325 mg Tablet] Cephalexin [Keflex (*)] 500 mg PO TID #21 cap 12/20/17 Opium/Belladonna Alkaloids 1 each RC Q4 PRN #12 supp.rect 12/20/17 [Belladonna-Opium 16.2-30 Supp] Departure - Departure Disposition: Home, Routine, Self-Care Clinical Impression: Edwards catheter in place Condition: Good Instructions: Edwards Catheter Placement and Care (ED) Referrals: NONE *PRIMARY CARE P,. [Primary Care Provider] - As per Instructions *This report may have been compiled using a voice recognition system, and might contain typographical errors and blanks.* Matt Us MD 12/30/17 0748 <Electronically signed by Matt Us MD> T: DINORA 12/30/17745 CC: NONE *PRIMARY CARE PHYS ONLY*
== END 2017-12-30 06:55 | disposition home or self-care (01) ==
DX: T83.098A Other mechanical complication of other urinary catheter, initial encounter (principal); Z85.841 Personal history of malignant neoplasm of brain; Z86.73 Personal history of transient ischemic attack (TIA), and cerebral infarction without residual deficits; Y82.8 Other medical devices associated with adverse incidents

== ENCOUNTER 2017-12-30 04:00 | Emergency (ER) | payer OTHER, MEDICARE ==
[2017-12-31 02:09] VITALS: BP 140/70
--- NOTE | 2017-12-31 05:23 | EDPHY ---
H & P Stated Complaint: bleeding from catheter Time Seen by Provider: 12/30/17 04:00 HPI/ROS: HPI CHIEF COMPLAINT: Pulled Whitehead out. HISTORY OF PRESENT ILLNESS: This patient is a very pleasant male, however recently multiple times he has a chronic indwelling Whitehead catheter he states that he was getting up out of bed today and accidentally pulled it out. He presents emergency room to have a new Whitehead catheter placed he denies any complaints. Past Medical History: Squamous cell carcinoma, brain surgery, chronic indwelling Whitehead, dementia Past Surgical History: Brain surgery Social History: Denies drugs alcohol tobacco. Resides at [facility]. Family History: Noncontributory ROS REVIEW OF SYSTEMS: A comprehensive 10 point review of systems is otherwise negative aside from elements mentioned in the history of present illness. Exam Constitutional elderly, nontoxic, triage nursing summary reviewed, vital signs reviewed, awake/alert. Eyes normal conjunctivae and sclera, EOMI, PERRLA. HENT normal inspection, atraumatic, moist mucus membranes, no epistaxis, neck supple/ no meningismus, no raccoon eyes. Respiratory clear to auscultation bilaterally, normal breath sounds, no respiratory distress, no wheezing. Cardiovascular rate normal, regular rhythm, no murmur, no edema, distal pulses normal. Gastrointestinal soft, non-tender, no rebound, no guarding, normal bowel sounds, no distension, no pulsatile mass. Genitourinary no CVA tenderness. Musculoskeletal no midline vertebral tenderness, full range of motion, no calf swelling, no tenderness of extremities, no meningismus, good pulses, neurovascularly intact. Skin pink, warm, & dry, no rash, skin atraumatic. Neurologic awake, alert and oriented x 3, AAOx3, moves all 4 extremities equally, motor intact, sensory intact, CN II-XII intact, normal cerebellar, normal vision, normal speech. Psychiatric normal mood/affect. Heme/Lymph/Immune no lymphadenopathy. Differential Diagnosis: Includes but is not limited to in a particular order complication from Whitehead, removed Whitehead Medical Decision Making: Plan for this patient will place new Whitehead catheter. Irrigate. Re-evaluation: 314: Patient's Whitehead catheter was replaced. He had good urine output approximately 400 cc. No complications he is feeling much better. He will be dispositioned back to his living facility. Source: Patient - Personal History Current Tetanus/Diphtheria Vaccine: Yes Current Tetanus Diphtheria and Acellular Pertussis (TDAP): Yes - Medical/Surgical History Hx Asthma: No Hx Chronic Respiratory Disease: No Hx Diabetes: No Hx Cardiac Disease: No Hx Renal Disease: No Hx Cirrhosis: No Hx Alcoholism: No Hx HIV/AIDS: No Hx Splenectomy or Spleen Trauma: No Other PMH: brain CA, CKD, CVA - Social History Smoking Status: Never smoked Constitutional: Initial Vital Signs Temperature (C) 37.0 C 12/30/17 06:55 Heart Rate 74 12/30/17 06:55 Respiratory Rate 16 12/30/17 06:55 Blood Pressure 118/71 12/30/17 06:55 O2 Sat (%) 97 12/30/17 06:55 O2 Delivery Mode Room Air Allergies/Adverse Reactions: Sulfa (Sulfonamide Antibiotics) Allergy (Verified 12/31/17 02:00) Home Medications: Medication Instructions Recorded Atorvastatin Calcium 12/09/16 Calcitriol 12/09/16 Gabapentin 12/09/16 Iron 12/09/16 Lexapro 12/09/16 Percocet 7.5-325 mg Tablet 12/09/16 Trazodone HCl 12/09/16 oxyCODONE HCL/ACETAMINOPHEN 1 each PO Q4H #20 tablet 12/18/16 [Percocet 10-325 mg Tablet] Cephalexin [Keflex (*)] 500 mg PO TID #21 cap 12/20/17 Opium/Belladonna Alkaloids 1 each RC Q4 PRN #12 supp.rect 12/20/17 [Belladonna-Opium 16.2-30 Supp] Departure - Departure Disposition: Home, Routine, Self-Care Clinical Impression: Whitehead catheter problem Qualifiers: Encounter type: initial encounter Qualified Code(s): T83.9XXA - Unspecified complication of genitourinary prosthetic device, implant and graft, initial encounter Condition: Good Instructions: Whitehead Catheter Placement and Care (ED) Referrals: Patient,NotPresent [Primary Care Provider] - As per Instructions
--- NOTE | 2017-12-31 05:24 | EDPHY ---
H & P Stated Complaint: bleeding from catheter Time Seen by Provider: 12/30/17 04:00 HPI/ROS: HPI CHIEF COMPLAINT: Bleeding from Whitehead. HISTORY OF PRESENT ILLNESS: Patient was just here in the emergency room where we placed new Whitehead catheter as he pulled his Whitehead catheter out earlier in the evening. Earlier in the evening we did replace his Whitehead he had good urine output after Whitehead was placed. Close to 400 cc. He went back to his living facility and then promptly return after EMS dropped him off at his living facility he stood up and had some blood come out or around his Whitehead catheter. The staff at this facility became concerned him they brought him back to the emergency room. Past Medical History: Squamous cell carcinoma, brain surgery, chronic indwelling Whitehead, dementia Past Surgical History: Brain surgery Social History: Denies drugs alcohol tobacco. Resides at [facility]. Family History: Noncontributory ROS REVIEW OF SYSTEMS: A comprehensive 10 point review of systems is otherwise negative aside from elements mentioned in the history of present illness. Exam Constitutional elderly, nontoxic, triage nursing summary reviewed, vital signs reviewed, awake/alert. Eyes normal conjunctivae and sclera, EOMI, PERRLA. HENT normal inspection, atraumatic, moist mucus membranes, no epistaxis, neck supple/ no meningismus, no raccoon eyes. Respiratory clear to auscultation bilaterally, normal breath sounds, no respiratory distress, no wheezing. Cardiovascular rate normal, regular rhythm, no murmur, no edema, distal pulses normal. Gastrointestinal soft, non-tender, no rebound, no guarding, normal bowel sounds, no distension, no pulsatile mass. Genitourinary Whitehead in place. Bright red blood around the Whitehead at the urethral meatus. But no significant bleeding. No significant tenderness on exam. Musculoskeletal no midline vertebral tenderness, full range of motion, no calf swelling, no tenderness of extremities, no meningismus, good pulses, neurovascularly intact. Skin pink, warm, & dry, no rash, skin atraumatic. Neurologic awake, alert and oriented x 3, AAOx3, moves all 4 extremities equally, motor intact, sensory intact, CN II-XII intact, normal cerebellar, normal vision, normal speech. Psychiatric normal mood/affect. Heme/Lymph/Immune no lymphadenopathy. Differential Diagnosis: Includes but is not limited to in a particular order complication from Whitehead, removed Whitehead Medical Decision Making: Plan for this patient will place new Whitehead catheter. Irrigate. Re-evaluation: 0545: We have cleaned the patient's blood up, this Whitehead is in place and draining. No abdominal pain. No evidence of further bleeding. He most likely had some blood around his Whitehead catheter due to the trauma that he encouraged when he removed his own Whitehead catheter. - Personal History Current Tetanus/Diphtheria Vaccine: Yes Current Tetanus Diphtheria and Acellular Pertussis (TDAP): Yes - Medical/Surgical History Hx Asthma: No Hx Chronic Respiratory Disease: No Hx Diabetes: No Hx Cardiac Disease: No Hx Renal Disease: No Hx Cirrhosis: No Hx Alcoholism: No Hx HIV/AIDS: No Hx Splenectomy or Spleen Trauma: No Other PMH: brain CA, CKD, CVA - Social History Smoking Status: Never smoked Constitutional: Initial Vital Signs Temperature (C) 37.0 C 12/30/17 06:55 Heart Rate 74 12/30/17 06:55 Respiratory Rate 16 12/30/17 06:55 Blood Pressure 118/71 12/30/17 06:55 O2 Sat (%) 97 12/30/17 06:55 O2 Delivery Mode Room Air Allergies/Adverse Reactions: Sulfa (Sulfonamide Antibiotics) Allergy (Verified 12/31/17 02:00) Home Medications: Medication Instructions Recorded Atorvastatin Calcium 12/09/16 Calcitriol 12/09/16 Gabapentin 12/09/16 Iron 12/09/16 Lexapro 12/09/16 Percocet 7.5-325 mg Tablet 12/09/16 Trazodone HCl 12/09/16 oxyCODONE HCL/ACETAMINOPHEN 1 each PO Q4H #20 tablet 12/18/16 [Percocet 10-325 mg Tablet] Cephalexin [Keflex (*)] 500 mg PO TID #21 cap 12/20/17 Opium/Belladonna Alkaloids 1 each RC Q4 PRN #12 supp.rect 12/20/17 [Belladonna-Opium 16.2-30 Supp] Departure - Departure Disposition: Home, Routine, Self-Care Clinical Impression: Whitehead catheter problem Qualifiers: Encounter type: initial encounter Qualified Code(s): T83.9XXA - Unspecified complication of genitourinary prosthetic device, implant and graft, initial encounter Condition: Good Instructions: Whitehead Catheter Placement and Care (ED) Referrals: Patient,NotPresent [Primary Care Provider] - As per Instructions
== END 2017-12-30 18:55 | disposition home or self-care (01) ==
DX: T83.9XXA Unspecified complication of genitourinary prosthetic device, implant and graft, initial encounter (principal); Z85.841 Personal history of malignant neoplasm of brain; Z86.73 Personal history of transient ischemic attack (TIA), and cerebral infarction without residual deficits; Y82.8 Other medical devices associated with adverse incidents

== ENCOUNTER 2018-01-13 12:51 | Day surgery (SDC) | payer OTHER, MEDICARE ==
[2018-01-13] MEDS ORDERED: LR 1,000 ML IV ONE (13:19)
--- NOTE | 2018-01-13 13:32 | CPEKG ---
Heart Rate: 66 RR Interval: 909 P-R Interval: 148 QRSD Interval: 122 QT Interval: 420 QTC Interval: 441 P Matheny: 33 QRS Matheny: -26 T Wave Matheny: 6 EKG Severity - ABNORMAL ECG - EKG Impression: SINUS RHYTHM EKG Impression: ATRIAL PREMATURE COMPLEX EKG Impression: RIGHT BUNDLE BRANCH BLOCK Electronically Signed By: Maikel Bunn 15-Jan-2018 08:29:08
[2018-01-13 13:56] LABS: PLATELET COUNT 239 10^3/uL (150-400)
[2018-01-13] MEDS ORDERED: LIDOCAINE 2% JELLY 20 ML (UROJECT) ONE (14:42)
--- NOTE | 2018-01-13 15:26 | PDANEPAE ---
ANE History of Present Illness Bladder clot ANE Past Medical History - Cardiovascular History Hx Hypertension: Yes Hx Arrhythmias: No Hx Chest Pain: No Hx Coronary Artery / Peripheral Vascular Disease: No Hx CHF / Valvular Disease: No Hx Palpitations: No Cardiovascular History Comment: HYPERLIPIDEMIA - Pulmonary History Hx COPD: No Hx Asthma/Reactive Airway Disease: No Hx Recent Upper Respiratory Infection: No Hx Oxygen in Use at Home: No Hx Sleep Apnea: No Sleep Apnea Screening Result - Last Documented: Negative - Neurologic History Hx Cerebrovascular Accident: No Hx Seizures: No Hx Dementia: No - Endocrine History Hx Diabetes: No - Renal History Hx Renal Disorders: Yes Renal History Comment: CKD - Liver History Hx Hepatic Disorders: No - Neurological & Psychiatric Hx Hx Neurological and Psychiatric Disorders: No - Cancer History Hx Cancer: Yes Cancer History Comment: PROSTATECTOMY - Congenital Disorder History Hx Congenital Disorders: No - GI History Hx Gastrointestinal Disorders: No - Other Health History Other Health History: NEG - Chronic Pain History Chronic Pain: Yes (BLADDER PAIN & DISCOMFORT) - Surgical History Prior Surgeries: LUMBAR SURGERY. PROSTATECTOMY. SQUAMOUS CELL CARCINOMA X2 - SCALP ANE Review of Systems Review of Systems: - Exercise capacity METS (RN): 3 METS ANE Patient History - Allergies Allergies/Adverse Reactions: Sulfa (Sulfonamide Antibiotics) Allergy (Verified 12/31/17 02:00) - Home Medications Home Medications: Acetaminophen 01/12/18 [Last Taken Unknown] Docusate Sodium 01/12/18 [Last Taken Unknown] Melatonin 01/12/18 [Last Taken Unknown] Oxybutynin 01/12/18 [Last Taken Unknown] Tamsulosin HCl 01/12/18 [Last Taken Unknown] Uro-Mp Capsule 01/12/18 [Last Taken Unknown] - NPO status NPO Since - Liquids (Date): 01/13/18 NPO Since - Liquids (Time): 07:30 NPO Since - Solids (Date): 01/13/18 NPO Since - Solids (Time): 07:30 - Smoking Hx Smoking Status: Former smoker ANE Labs/Vital Signs - Labs Result Diagrams: 01/13/18 13:45 01/13/18 13:45 - Vital Signs Blood Pressure: 133/72 Heart Rate: 67 Respiratory Rate: 18 O2 Sat (%): 98 Height: 168.91 cm Weight: 70.307 kg ANE Physical Exam - Airway Neck exam: FROM Mallampati Score: Class 2 Mouth exam: normal dental/mouth exam - Pulmonary Pulmonary: no respiratory distress - Cardiovascular Cardiovascular: regular rate and rhythym - ASA Status ASA Status: III ANE Anesthesia Plan Anesthesia Plan: GA w LMA
[2018-01-13] MEDS ORDERED: fentaNYL 100 MCG/2 ML INJ ONE (15:30)
[2018-01-13] MEDS ORDERED: PROPOFOL 200 MG/20 ML VIAL ONE ×2 (15:30)
--- NOTE | 2018-01-13 15:33 | PDHPUP ---
History & Physical Update H&P update statement: This history and physical update is based on an assessment of the patient which was completed after admission or registration (within 24 hours), but prior to the surgery/procedure. H&P update: H&P reviewed & patient examined, no change in patient's condition since H&P completed
[2018-01-13] MEDS ORDERED: ceFAZolin 1 GM in NS 100 ML IV ONE (15:34)
[2018-01-13] MEDS ORDERED: ceFAZolin 1 GM VIAL ONE (15:57)
[2018-01-13] MEDS ORDERED: NALOXONE HCL 0.4 MG/ML INJ IVP PRN (16:19)
[2018-01-13] MEDS ORDERED: fentaNYL 100 MCG/2 ML INJ IVP PRN (16:19)
[2018-01-13] MEDS ORDERED: ONDANSETRON 4 MG/2 ML VIAL IVP PRN (16:19)
[2018-01-13] MEDS ORDERED: HYDROmorphONE/DILAUDID 1 MG/ML INJ IVP PRN (16:19)
[2018-01-13] MEDS ORDERED: PROMETHAZINE HCL 25 MG/ML INJ IVP PRN (16:19)
--- NOTE | 2018-01-13 16:20 | POSTANESTH ---
Post Anesthetic Evaluation Cardiovascular Status: Normal, Stable Respiratory Status: Normal, Stable Level of Consciousness/Mental Status: Can Participate in Eval Pain Control: Adequate, Prn Tx Ordered Nausea/Vomiting Control: Adequate, Prn Tx Ordered Complications Possibly Related to Anesthesia: None Noted
--- NOTE | 2018-01-13 16:28 | POSTOPPROG ---
Post Op Note Date of Operation: 01/13/18 Surgeon: Maikel Mcnamara Speech Communication Instructor: none Anesthesiologist: HOLLIE Anesthesia: GET(General Endotracheal) Pre-op Diagnosis: Clot retention Post-op Diagnosis: same Indication: as above Procedure: cystoscopy and clot retention Findings: clot removed Inf/Abcess present in the surg proc area at time of surgery?: No Depth: Superfical (Skin SQ) EBL: Minimal Total fluids administered: 1 L Complications: none Drains: Other
[2018-01-13 17:07] VITALS: BP 145/88
--- NOTE | 2018-01-13 17:17 | GOP ---
[f rep st] OPERATIVE REPORT DATE OF OPERATION: 01/13/2018 SURGEON: Maikel Mcnamara MD PREOPERATIVE DIAGNOSIS: Clot retention, old. POSTOPERATIVE DIAGNOSIS: Clot retention, old. PROCEDURE PERFORMED: Cystoscopy and clot evacuation on 01/13/2018. FINDINGS: ESTIMATED BLOOD LOSS: Zero, all clot is old. INDICATIONS: The patient has clot retention and difficulty voiding after a prostate procedure in my office. Cystoscopy noted a dense, firm clot in his bladder. He had severe difficulty with me irriga ting a catheter in my office. He was brought to the operating room to remove it. DESCRIPTION OF PROCEDURE: Patient was identified by name, medical record number, wrist band. Emily t to the operating room and laid supine on the table. Was prepped and draped in standard surgical fa shion. A 22-Yemeni cystoscope was inserted in the bladder and visualized after right and left ureteral orifices were noted to be in normal location. A clot was identified and evacuated wit h suction, and once all clot was evacuated, the bladder was clear. No tumors were noted. The left a nd right ureteral orifices were noted to be in normal location. A [place] catheter was placed to gentl e traction. The patient was awakened from anesthesia, brought to the recovery room in stable conditi on. COMPLICATIONS: None. DRAINS: Three-way [place] to be removed before going home. /[id number]/MODL
== END 2018-01-13 18:00 | disposition home or self-care (01) ==
LOC: FSGY 12:51
PROVIDERS: ATTEND Urology
PROC: 0T9B8ZZ Drainage of Bladder, Via Natural or Artificial Opening Endoscopic (ICD-10-PCS; principal; 2018-01-13 15:00)
DX: R31.0 Gross hematuria (principal); N32.89 Other specified disorders of bladder; R33.9 Retention of urine, unspecified; R39.15 Urgency of urination; R35.0 Frequency of micturition; N40.1 Benign prostatic hyperplasia with lower urinary tract symptoms; N40.3 Nodular prostate with lower urinary tract symptoms; R97.20 Elevated prostate specific antigen [PSA]; N18.9 Chronic kidney disease, unspecified; I12.9 Hypertensive chronic kidney disease with stage 1 through stage 4 chronic kidney disease, or unspecified chronic kidney disease; E03.9 Hypothyroidism, unspecified; E78.5 Hyperlipidemia, unspecified; F41.9 Anxiety disorder, unspecified; Z98.890 Other specified postprocedural states; Z85.49 Personal history of malignant neoplasm of other male genital organs; Z87.891 Personal history of nicotine dependence; Z86.12 Personal history of poliomyelitis; Z82.49 Family history of ischemic heart disease and other diseases of the circulatory system; Z88.2 Allergy status to sulfonamides
CPT/HCPCS: J0690; J2704; J3010